=== PATIENT | female | born 2000 | race African-American/Black ===

== ENCOUNTER 2020-08-30 08:22 | Emergency (ER) | payer OTHER ==
[~2020-08-30] VITALS: Ht 165.1 cm; Wt 114.3 kg
[2020-08-30 08:42] LABS: ABSOLUTE NEUTROPHILS 8.7 thou/uL (1.4-8.2); BASOPHILS 0.6 % (0.0-2.0); EOSINOPHILS 2.9 % (0.0-3.0); HEMATOCRIT 39.1 % (37.0-47.0); LYMPHOCYTES 18.8 % (24.0-44.0); MCH 28.1 pg (26.0-34.0); MCHC 33.2 g/dL (28.0-37.0); MCV 84.8 fL (80.0-100.0); PLATELET COUNT 221 thou/uL (150-400); POLYS 72.7 % (36.0-66.0); RBC 4.62 mil/uL (4.20-5.00); RDW 13.6 % (10.5-14.5)
[2020-08-30 08:52] LABS: CALCIUM 8.7 mg/dL (8.5-10.1); CREATININE 0.8 mg/dL (0.6-1.0); POTASSIUM 3.9 mmol/L (3.5-5.1)
[2020-08-30 08:59] LABS: ALBUMIN 3.5 g/dL (3.4-5.0); TOTAL BILIRUBIN 0.1 mg/dL (0.2-1.0); TOTAL PROTEIN 7.1 g/dL (6.4-8.2)
[2020-08-30 09:17] LABS: URINE BILIRUBIN NEGATIVE (Negative); URINE BLOOD NEGATIVE (Negative); URINE CLARITY CLEAR; URINE COLOR YELLOW; URINE GLUCOSE-RANDOM* NEGATIVE (Negative); URINE KETONES NEGATIVE (Negative); URINE LEUKOCYTES-REFLEX NEGATIVE (Negative); URINE NITRITE-REFLEX NEGATIVE (Negative); URINE PROTEIN (DIPSTICK) NEGATIVE (Negative); URINE SPECIFIC GRAVITY >= 1.030 (1.005-1.035); URINE UROBILINOGEN 0.2 E.U./dl (0.2-1.0)
[2020-08-30] MEDS ORDERED: OMEPRAZOLE 20 M20 M1 PO (10:47)
[2020-08-30 11:18] VITALS: BP 117/87
== END 2020-08-30 11:18 | disposition home or self-care (01) ==
LOC: ER 08:22
PROVIDERS: Emergency Medicine
DX: S29.012A Strain of muscle and tendon of back wall of thorax, initial encounter (principal); K29.60 Other gastritis without bleeding; X58.XXXA Exposure to other specified factors, initial encounter; Y93.89 Activity, other specified; Y92.89 Other specified places as the place of occurrence of the external cause; Y99.8 Other external cause status

== ENCOUNTER 2020-09-03 20:19 | Inpatient (IN) | payer OTHER ==
[~2020-09-03] VITALS: Ht 165.1 cm; Wt 114.3 kg
--- NOTE | ~2020-09-03 | P ---
[facility] [place] [address] PROCEDURE REPORT Name: SAVANNAH DICKERSON Room #: 442-P [facility] IN M.R.#: [id number] Admission: 09/03/20 Attend Phys: Theo Khalil MD Discharge: 09/06/20 Date of : 99 Report #: [id number] THIS REPORT FOR: cc: NO FAMILY PHYSICIAN or PCP NO FAMILY PHYSICIAN or PCP Brock Cuevas MD ~ cc: Jag Alford MD PROCEDURE PERFORMED: Endoscopic retrograde cholangiopancreatography with sphincterotomy and balloon sweeps. HISTORY OF PRESENT ILLNESS: The patient is a 20-year-old female with a history of midepigastric abdominal pain and back pain. She was noted to have elevated liver function tests. She underwent ultrasound of the abdomen which showed cholelithiasis, mild gallbladder wall thickening. The patient then underwent a laparoscopic cholecystectomy yesterday and a cholangiogram was obtained. Lucency seen in the common bile duct near the 16th duct insertion, this could be gas artifact or even a stone would not be excluded. Therefore, plan is for ERCP. The patient's bilirubin yesterday was 3.0, today is 0.6. DESCRIPTION OF PROCEDURE: The risks and benefits of the procedure were explained to the patient, those risks including but not limited to bleeding, perforation and the risk of sedation as well as the potential for post-ERCP pancreatitis. The patient understood these risks and gave informed consent. test was negative. The patient was given 2 g of Ancef prior to the procedure as well as a 50 mg indomethacin suppository. The procedure was performed in the operating room under general anesthesia. Next, using a standard side-viewing Olympus ERCP scope, the scope was placed in the patient's mouth and advanced under direct vision through the esophagus, stomach and into the second portion of the duodenum. The major papilla was identified and normal in appearance. Next, using a Moe-Cook 0.025 dome tipped sphincterotome catheter, the common bile duct was cannulated without difficulty and a cholangiogram was obtained. No obvious filling defects were noted other than what appeared to be a small air bubble in the common bile duct. No evidence of bile leak. At this point, a sphincterotomy was performed and then an 8 mm balloon was advanced over the guidewire and several balloon sweeps were performed. No stones or debris were removed. The lucency appeared to be an air bubble, which was removed. At this point, the catheter was removed, and the scope was withdrawn and the procedure terminated. The patient tolerated the procedure well. IMPRESSION: 1. No stones noted within the common bile duct. There was a lucency that I suspect was an air bubble that was removed with balloon sweep. 2. No evidence of bile leak. [facility] [address] [place] [address] PROCEDURE REPORT Name: SAVANNAH DICKERSON Room #: 442-P [facility] IN M.R.#: [id number] Admission: 09/03/20 Attend Phys: Theo Khalil MD Discharge: 09/06/20 Date of : 99 Report #: [id number] RECOMMENDATIONS: Observe the patient post-procedure. Thank you for allowing me to participate in her care. By: 1152 2241 Brock Cuevas MD /nt
--- NOTE | ~2020-09-03 | O ---
[facility] [place] [address] OPERATIVE REPORT Name: SAVANNAH DICKERSON Room #: 442-P ADM IN M.R.#: [id number] Admission: 09/03/20 Attend Phys: Theo Khalil MD Discharge: Date of : 99 Report #: [id number] THIS REPORT FOR: cc: NO FAMILY PHYSICIAN or PCP NO FAMILY PHYSICIAN or PCP Jag Alford MD ~ PREOPERATIVE DIAGNOSIS: Acute cholecystitis. POSTOPERATIVE DIAGNOSIS: Acute cholecystitis. OPERATION: Laparoscopic cholecystectomy with intraoperative cholangiogram. SURGEON: Jag Alford MD ANESTHESIA: General. ESTIMATED BLOOD LOSS: Minimal. SPECIMENS: Gallbladder. INTRAOPERATIVE FINDINGS: A small filling defect in the common bile duct. DESCRIPTION OF PROCEDURE: After informed consent was obtained, the patient was brought to the operating room and placed supine. SCDs were placed and working, preoperative antibiotics were administered, general anesthesia was induced. The abdomen was prepped and draped in the usual sterile fashion. A 10 mm incision was made below the umbilicus. Fascia was incised and a trocar was placed. Pneumoperitoneum was established. Three right upper quadrant 5 mm ports were placed. Gallbladder was grasped at the fundus and retracted cephalad. Infundibulum was grasped and retracted laterally. I dissected out the cystic duct and cystic artery. The cystic duct and common bile duct looked dilated and therefore, a cholangiogram was performed. Cystic duct was clipped. A ductotomy was made. Cholangiogram catheter was inserted. Cholangiogram was performed and there appeared to be a filling defect in the cystic duct, which was somewhat enlarged. The catheter was removed. Cystic duct and artery were clipped and ligated leaving 2 clips and a PDS Endoloop on the remaining duct and clipped on the remaining artery. Gallbladder was then taken off the liver bed with electrocautery. It was placed into an Endopouch and removed. The fascia was then closed with a [id number]-ky-olekp 0 Vicryl. Skin was closed with 4-0 Monocryl. Incisions were sealed with Steri-Strips. COMPLICATIONS: None. [facility] [address] [place] [address] OPERATIVE REPORT Name: SAVANNAH DICKERSON Room #: 442-P [facility] IN ..#: [id number] Admission: 09/03/20 Attend Phys: Theo Khalil MD Discharge: Date of : 99 Report #: [id number] DISPOSITION: The patient was taken to recovery in satisfactory condition. By: 0812 0917 Jag Alford MD /nt
[~2020-09-03 20:19] MED LIST: OMEPRAZOLE 20 M20 M1 PO
[2020-09-03 20:30] VITALS: BP 139/91
[2020-09-03 20:31] LABS: URINE BILIRUBIN NEGATIVE (Negative); URINE BLOOD NEGATIVE (Negative); URINE CLARITY CLEAR; URINE COLOR YELLOW; URINE GLUCOSE-RANDOM* NEGATIVE (Negative); URINE KETONES NEGATIVE (Negative); URINE LEUKOCYTES-REFLEX NEGATIVE (Negative); URINE NITRITE-REFLEX NEGATIVE (Negative); URINE PROTEIN (DIPSTICK) NEGATIVE (Negative)
[2020-09-03 21:16] LABS: HEMATOCRIT 41.5 % (37.0-47.0); HEMOGLOBIN 13.8 gm/dL (12.0-15.0); MCH 28.4 pg (26.0-34.0); MCHC 33.3 g/dL (28.0-37.0); MCV 85.2 fL (80.0-100.0); RBC 4.87 mil/uL (4.20-5.00); RDW 13.2 % (10.5-14.5); WBC 9.6 thou/uL (4.0-11.0)
[2020-09-03 21:22] LABS: CALCIUM 8.7 mg/dL (8.5-10.1); CREATININE 0.8 mg/dL (0.6-1.0); POTASSIUM 3.8 mmol/L (3.5-5.1)
[2020-09-03 21:28] LABS: ALBUMIN 3.6 g/dL (3.4-5.0); TOTAL PROTEIN 7.6 g/dL (6.4-8.2)
[2020-09-04 08:04] VITALS: BP 103/41
[2020-09-04 09:17] VITALS: BP 112/57
--- NOTE | 2020-09-04 12:25 | NUR ---
PT CAME TO THE FLOOR AROND O830. C/O ABDOMINAL PAIN. US DONE AT ER AND POSITIVE FOR GALL STONES. ALERT X ORIENTED X4 .ON ROOM AIR. UP WITH STEADY GAIT.IV RT AC WITH NS RUNNING AT 80MLS/HR. NPO SINCE MIDNIGHT. SCHEDULED EGD FOR TODAY. REPORT GIVEN TO PACU NURSE. FAMILY AWARE OF THE PROCEDURE. WILL CONT TO MONITOR.
[2020-09-04 21:00] VITALS: BP 126/77
--- NOTE | 2020-09-05 01:49 | NUR ---
PT WAS OBSERVED TALKING ON THE PHONE DURING SHIFT CHANGE.PT C/O PAIN TO HER ABD AND BACK,MANAGED WITH MED.NO C/O N/V NOTED.PER REPORT, PT STARTED ITCHING WHILE ZOSYN WAS INFUSING,AM NURSE WAS TOLD TO STOP THE INFUSION.AT HS,PT HAD ANOTHER DOSE SCHEDULED,LEHR CUTTER ON DUTY NOTIFIED,MED DC'D.NO NEW ORDER NOTED.PT NPO AT THIS TIME FOR SX IN TH AM.CALL LIGHT WITHIN REACH.
[2020-09-05 10:03] VITALS: BP 126/68
[2020-09-05 11:43] LABS: ALBUMIN 3.5 g/dL (3.4-5.0); CREATININE 0.9 mg/dL (0.6-1.0); POTASSIUM 3.8 mmol/L (3.5-5.1); TOTAL PROTEIN 7.4 g/dL (6.4-8.2)
--- NOTE | 2020-09-05 13:06 | NUR ---
PT WAS DOWN IN OR WHEN CHANGING SHIFTS THIS MORNING. PT HAD A CHOLOCYSTECTOMY AND ARRIVED TO HER ROOM AT 1000 THIS MORNING.PT HAS 4 LAP SITES ON RT SIDE OF ABD ABOVE AMBILICUS. PT IS A/OX4 AND C/O OF HUNGER. PT'S ABD IS TENDER AROUND THE LAP SITES BUT OTHERWISE SOFT, NONTENDER. LUNGS ARE CLEAR ALL SIMONS, SKIN INTACT AND NO TENTING NOTED. CR<3SECX4 DISTAL PULSES STRONG AND REG. ASSESSMENTS NOTED IN THE CHART AND OTHERWISE UNREMARKABLE. IV IN RT AC WITH NS AT 100ML/HR. CALL LIGHT AND OTHER NEEDS ARE WITHIN REACH. MEDS AND TX GIVEN NEEDED AND SCHEDULED. PT WILL BE STAYING OVERNIGHT FOR OBSERVATION AND POSSIBLE EGD.
--- NOTE | 2020-09-05 14:32 | NUR ---
ASSESSMENT: CM REVIEWED CHART AND SPOKE WITH PATIENT AT THE BEDSIDE. PT IS ALERT AND ORIENTED X4. PT WAS ADMITTED DUE TO CHOLECYSTITIS AND HAD LAP CLINT. PT REPORTS LIVING IN A HOUSE WITH HER FATEHR. PT IS FULLY INDEPENDENT WITH ADLS AND AMBULATION. PT IS SHOWING PATIENT PAY AND CONFIRMS SHE HAS NO INSURANCE OF PCP. CM PROVIDED PATIENT WITH [facility] AND CONTACT INFORMATION FOR CRITICAL ACCESS HOSPITAL SERVICES. PT REPORTS SHE SHOULD HAVE NO FURTHER NEEDS FROM CM.
[2020-09-05 17:00] VITALS: BP 122/76
[2020-09-05 19:24] VITALS: BP 122/76
--- NOTE | 2020-09-06 02:00 | NUR ---
ASSUMED PT CARE AT 1900.PT C/O PAIN TO HER ABD,MANAGED WITH MED.4 LAP SITES C/D/I WITH DERMABOND AND STERI STRIPS.PT NPO SINCE MN FOR A POSSIBLE PROCEDURE LATER IN THE DAY.CALL LIGHT WITHIN REACH.
[2020-09-06 04:59] VITALS: BP 121/70
[2020-09-06 05:34] LABS: HEMATOCRIT 37.5 % (37.0-47.0); HEMOGLOBIN 12.3 gm/dL (12.0-15.0); MCH 27.7 pg (26.0-34.0); MCHC 32.7 g/dL (28.0-37.0); MCV 84.7 fL (80.0-100.0); RBC 4.42 mil/uL (4.20-5.00); RDW 13.2 % (10.5-14.5); WBC 11.9 thou/uL (4.0-11.0)
[2020-09-06 05:44] LABS: ALBUMIN 2.9 g/dL (3.4-5.0); DIRECT BILIRUBIN 0.3 mg/dL (<0.1-0.2); TOTAL BILIRUBIN 0.6 mg/dL (0.2-1.0); TOTAL PROTEIN 6.5 g/dL (6.4-8.2)
[2020-09-06 09:32] VITALS: BP 124/74
--- NOTE | 2020-09-06 15:10 | NUR ---
ON-GOING ASSESSMENT: CM REVIEWED CHART. PT IS TO HAVE ERCP TODAY AND POSSIBLE DISCHARGE HOME AFTER. CM ALREADY PROVIDED PATIENT WITH OUTPATIENT RESOURCES IF NEEDED. PT SHOULD HAVE NO NEEDS FROM CM.
[2020-09-06 15:11] VITALS: BP 124/74
--- NOTE | 2020-09-06 15:35 | NUR ---
Received awake on bed. Due medications given as prescribed. On nothing per orem- pt informed and aware. On MS, not on telemetry; no complains and signs of chest pain, crushing sensation and heaviness. Assisted in ADLs. Continent of bowel and bladder, able to go to the toilet independently. Falls bundle in place. IV infiltrated during shift change, resited at L hand- NS at 80cc/hr resumed as ordered. Pt scheduled for ERCP today- consent to be signed- pt scheduled at approx noon time- pt aware. Complained of pain, due PRN pain meds given as prescribed. S/P lap maddy 09/05- 4 lap sites on her abdomen with dermabond, C/D/I- no bleeding and drainage noted. Pt brouught down for ERCP via bed; back to room safely. Dr Olson informed that pt came back from ERCP, relayed to her Dr Serrano's notes- a/w order if pt to be discharged today. To continue monitoring patient.
--- NOTE | 2020-09-06 16:09 | PATH ---
[facility] [address] [place] [address] PATHOLOGY RPT PROCEDURE Name: JAKY VARGAS Room #: 442-P ADM IN M.R.#: [id number] Admission: 09/03/20 Date of : 99 Discharge: Report #: [id number] Path Case #: [id number] [facility] Accession Number: [id number] . 01 Material submitted: . PART A: duodenum - DUODENAL BX PART B: gastrointestinal site - GASTRIC BX R/O H. PYLORI . 01 Clinical history: . EGD ABD PAIN . 02 Diagnosis: A. Small bowel mucosa, duodenum, endoscopic biopsy: - No diagnostic abnormality present. - Negative for villous blunting or increase in intraepithelial lymphocytes. . B. Gastric mucosa, gastric rule out H. pylori, endoscopic biopsy: - Mild reactive gastropathy. - Negative for intestinal metaplasia or atrophy. - Negative for Helicobacter pylori (properly-controlled immunohistochemical stain performed). . (IUV:mml; 09/06/2020) QL 09/06/2020 1250 Local . 02 Electronically signed: . Selene Chambers MD, Pathologist NPI- [id number] . 01 Gross description: . A. The specimen is submitted in formalin, labeled "Sam Jaky, duodenal biopsy". Received are 3 segments of pale mcdaniels tissue ranging in size from 0.3 to 0.7 cm in maximum dimensions. The specimen is submitted in cassette A1. . B. The specimen is submitted in formalin, labeled "Jaky Vargas, gastric biopsy". Received are 2 segments of pale mcdaniels tissue ranging in size from 0.2 to 0.3 cm in maximum dimensions. The specimen is submitted in cassette B1. ([facility]; 09/05/2020) . NRI/NRI 09/05/2020 1118 Local . 02 Pathologist provided ICD-10: K31.9, R10.[address] [address] PATHOLOGY RPT PROCEDURE Name: JAKY VARGAS Room #: 442-P [facility] IN .R.#: [id number] Admission: 09/03/20 Date of : 99 Discharge: Report #: [id number] Path Case #: [id number] . 02 [facility] . [id number], [id number], [id number] Specimen Comment: A courtesy copy of this report has been sent to [phone] Specimen Comment: 2007 Specimen Comment: Report sent to / DR ALEXANDER Performed at: [address], [place], [place] [id number] MD Andrea Sevilla MD Phone: [phone] Performed at: [address] [id number] MD Selene Chambers MD Phone: [phone]
[2020-09-06 16:53] VITALS: BP 139/87
[2020-09-06] MEDS ORDERED: TYLENOL ARTHRI650 MG PO (17:41)
[2020-09-06] MEDS ORDERED: ZOFRAN 4 MG ORAL4 MG PO (17:41)
[2020-09-06] MEDS ORDERED: IBUPROFEN 600600 M1 PO (17:44)
--- NOTE | 2020-09-07 18:07 | PATH ---
[facility] [place] [address] PATHOLOGY RPT PROCEDURE Name: SAVANNAH DICKERSON Room #: 442-P [facility] IN M.R.#: [id number] Admission: 09/03/20 Date of : 99 Discharge: 09/06/20 Report #: [id number] Path Case #: [id number] [facility] Accession Number: [id number] . 01 Material submitted: . gallbladder - GALLBLADDER . 01 Clinical history: . LAPAROSCOPIC CHOLECYSTECTOMY WITH G CHOLELITHIASIS . 02 Diagnosis: Gallbladder, cholecystectomy: - Mild chronic cholecystitis. - Cholelithiasis. - Cholesterolosis, focal . (IUV:mml; 09/07/2020) QLM 09/07/2020 1548 Local . 02 Electronically signed: . Selene Chambers MD, Pathologist NPI- [id number] . 01 Gross description: . Fixative: Formalin Labeled: Gallbladder Specimen received: Intact gallbladder Dimensions: 8.0 x 3.5 x 2.8 cm Serosa: Congested pink-mcdaniels, dull mcdaniels-brown at the fundus Lymph node: Not present Mucosa: Velvety light green bile-stained with streaks Average wall thickness: 0.2-0.3 Calculi: Multiple light green bile-stained round calculi ranging from 0.1-0.3 Abnormalities: No grossly apparent lesions A1- Key Bed Installer body, fundus, and the cystic duct margin. ([facility]; 09/06/2020) . [facility] 09/06/20201955 Local . 02 Pathologist provided ICD-10: K80.10, K82.4 . 02 CPT . [id number] Specimen Comment: A courtesy copy of this report has been sent to [phone], [place] [address] PATHOLOGY RPT PROCEDURE Name: SAVANNAH DICKERSON Room #: 442-P [facility] IN .#: [id number] Admission: 09/03/20 Date of : 99 Discharge: 09/06/20 Report #: [id number] Path Case #: [id number] Specimen Comment: 1826 Specimen Comment: Report sent to / DR RAMOS Performed at: 01 [facility] Donna Corcoran [address] [place] [address] [address], [place], [place] [id number] MD Andrea Sevilla MD Phone: [phone] Performed at: [address] [id number] MD Selene Chambers MD Phone: [phone]
== END 2020-09-06 20:07 | disposition home or self-care (01) | DRG 419 ==
LOC: ER 20:19 → EROBS 23:03 → 4S 09-04 08:24
PROVIDERS: Emergency Medicine; Nurse Practitioner; Nurse Practitioner Family; Surgery; ADMIT Internal Medicine; ATTEND Internal Medicine
DX: K80.00 Calculus of gallbladder with acute cholecystitis without obstruction (principal); F17.210 Nicotine dependence, cigarettes, uncomplicated; R74.01 Elevation of levels of liver transaminase levels; K21.9 Gastro-esophageal reflux disease without esophagitis; Z88.6 Allergy status to analgesic agent; K44.9 Diaphragmatic hernia without obstruction or gangrene; Z20.822 Contact with and (suspected) exposure to COVID-19; Z88.1 Allergy status to other antibiotic agents
CPT/HCPCS: 10102; 50101; 50411; 50555; 51297; 51489; 52265; 52266; 53307; 53312; 53314; 55245; 56462; 56525; 56526; 58574; 62110; 62900; 70005